=== PATIENT | female | born 1930 | race Caucasian/White ===

== ENCOUNTER 2019-10-06 16:11 | Inpatient (IN) | payer OTHER ==
[~2019-10-06] VITALS: Ht 142.2 cm; Wt 48.3 kg
[~2019-10-06 16:11] MED LIST: ACET-1079 PO; DOCU-96 PO; LEVO25TA6 PO; LORA-655 PO; METO-158 PO; NIF10C PO; POLY33504 PO; TRAM50TA2 PO
[2019-10-06 17:11] LABS: Basophils # (auto) 0 10 ^3/uL (0-0.2); Basophils % (auto) 0.1 % (0.0-2.0); Eosinophils # (auto) 0 10 ^3/uL (0-0.8); Eosinophils % (auto) 0.4 % (0.0-7.0); Hemoglobin 13.3 g/dL (12.2-16.2); Lymphocytes # (auto) 1.3 10 ^3/uL (0.4-5.4); Lymphocytes % (auto) 24.5 % (10.0-50.0); Mean Corpuscular Hemoglobin 31.4 pg (28.0-32.0); Mean Corpuscular Hgb Conc. 34.2 g/dL (32.0-36.0); Mean Corpuscular Volume 91.9 fL (80.0-100.0); Monocytes # (auto) 0.6 10 ^3/uL (0-1.3); Monocytes % (auto) 10.9 % (0.0-12.0); Neutrophils # (auto) 3.5 10 ^3/uL (1.6-8.6); Neutrophils % (auto) 64.1 % (37.0-80.0); Nucleated Red Blood Cells % 0.1 %; Platelet Count (auto) 176 10^3/uL (140-450); Red Blood Cells 4.25 10^6/uL (4.0-5.20); Red Cell Distribution Width 14.4 % (11.8-14.3); White Blood Cell 5.5 10^3/uL (4.4-10.8)
[2019-10-06 17:27] LABS: Albumin 3.3 g/dL (3.4-5.0); BUN/Creatinine Ratio 15.7; Calcium 8.3 mg/dL (8.5-10.1); Potassium 3.7 mmol/L (3.5-5.1)
[2019-10-06 17:30] LABS: Bilirubin, Total 0.5 mg/dL (0.2-1.0); Total Protein 6.8 g/dL (6.4-8.2)
[2019-10-06] MEDS ORDERED: MORPHINE SULF INJ 2 MG/ML SYRINGE 1ML IV ONE (17:30)
[2019-10-06] MEDS ORDERED: cloNIDine HCL 0.1 MG TAB PO ONE (17:30)
[2019-10-06] MEDS ORDERED: ONDANSETRON HCL 4 MG/2 ML VIAL IV ONE (17:30)
[2019-10-06] MEDS ORDERED: FUR20T (17:39)
[2019-10-06] MEDS ORDERED: POTASSIUM (17:39)
[2019-10-06] MEDS ORDERED: APIX2.5T (17:39)
[2019-10-06] MEDS ORDERED: ALBUTEROL SULF 2.5 MG/0.5ML(0.5%) NEB SOLN NEB PRN (18:00)
[2019-10-06] MEDS ORDERED: ONDANSETRON HCL 4 MG/2 ML VIAL IV PRN (18:00)
[2019-10-06] MEDS ORDERED: MORPHINE SULF INJ 2 MG/ML SYRINGE 1ML IV PRN (18:00)
[2019-10-06] MEDS ORDERED: LACTULOSE 20Gm/30ML SOLN PO PRN (18:00)
[2019-10-06 18:36] VITALS: BP 228/99
[2019-10-06] MEDS: SODIUM CHLORIDE 0.9% 1,000 ML IV SCH (18:38)
[2019-10-06] MEDS: LORazepam 0.5 MG TAB PO PRN (18:43)
[2019-10-06] MEDS: MORPHINE SULF INJ 2 MG/ML SYRINGE 1ML IV PRN ×2 (19:26→23:34)
[2019-10-06] MEDS ORDERED: POTA10TA51 PO (19:59)
[2019-10-06 20:00] VITALS: BP 158/72
--- NOTE | 2019-10-06 20:00 | NUR ---
MS admit from NOREEN NGUYENDENTON Morrison admitted to MS. Patient oriented to Charity wang RN, unit, room, bed, and unit policies regarding patient care and visiting hours. Patient weighed by bedscale and encouraged to call if they need something. All questions and concerns addressed, patient verbalized understanding. PATIENT IS A/OX4, HARD OF HEARING, ABLE TO ANSWER ALL QUESTIONS. GILL IN PLACE DRAINING CLEAR YELLOW URINE TO GRAVITY. SKIN TEAR NOTED TO LEFT HAND, WILL TAKE WOUND PHOTO AND DO WOUND CARE. IV IN PLACE TO RIGHT AC INTACT AND PATENT.
[2019-10-06 20:06] VITALS: BP 158/72
[2019-10-06 20:37] LABS: INR 1.07 (0.9-1.15)
--- NOTE | 2019-10-06 21:00 | NUR ---
WOUND CARE WOUND PHOTO TAKEN, FORM FILLED OUT AND PLACED IN WOUND CARE BASKET. WOUND CARE DONE TO LEFT HAND, CLEANSED WITH WOUND CLEANSER, PATTED DRY WITH STERILE GAUZE. COVERED LEFT HAND WITH STERI STRIPS AND OPTIFOAM.
[2019-10-06] MEDS: METOPROLOL TARTRATE 50 MG TAB PO SCH (22:02)
--- NOTE | 2019-10-06 23:34 | NUR ---
PAIN PATIENT HAS 10/10 PAIN TO RIGHT HIP/LEG MORPHINE ADMINISTERED ORDERED BY MD- SEE EMAR FOR DETAILS. WILL REASSESS PAIN IN 30 MIN
[2019-10-07] VITALS (7 sets, daily range): BP systolic 122–197; BP diastolic 73–100
--- NOTE | 2019-10-07 00:04 | NUR ---
PAIN REASSESSMENT PATIENT SLEEPING COMFORTABLY NO SIGNS OF PAIN. WILL CONTINUE TO MONITOR CLOSELY
[2019-10-07 01:31] LABS: Urine Amorphous Crystal FEW /hpf (None Seen); Urine Bacteria FEW /hpf (None Seen); Urine Blood Negative /uL (Negative); Urine WBC 1 /hpf (0 - 5)
[2019-10-07] MEDS: MORPHINE SULF INJ 2 MG/ML SYRINGE 1ML IV PRN ×3 (04:14→20:55)
--- NOTE | 2019-10-07 04:14 | NUR ---
PAIN PATIENT STATES HER PAIN IS 10/10 TO RIGHT LEG/HIP PATIENT MEDICATED WITH MORPHINE ORDERED BY MD- SEE EMAR FOR DETAILS. WILL REASSESS IN 30 MINUTES
--- NOTE | 2019-10-07 04:44 | NUR ---
PAIN REASSESSMENT PATIENT SLEEPING COMFORTABLY. NO S/S OF PAIN AT THIS TIME. WILL CONTINUE TO MONITOR CLOSELY
--- NOTE | 2019-10-07 04:55 | NUR ---
ROUTINE EKG DONE PER MD ORDER FOR PRE OP PLACED IN HARD CHART FOR MD TO SIGN
--- NOTE | 2019-10-07 06:50 | NUR ---
CLOSING PATIENT SLEEPING. NPO STATUS MAINTAINED FOR POSSIBLE PROCEDURE TODAY. FALL PRECAUTIONS IN PLACE, CALL LIGHT WITHIN REACH. WILL ENDORSE CARE TO DAYSHIFT RN
--- NOTE | 2019-10-07 07:25 | NUR ---
OPENING SHIFT NOTE ASSUMED CARE OF PATIENT FROM OCCUPATIONAL HEALTH RN JOSE ALFREDO SANCHEZ. PATIENT HAS NO S/S OF DISTRESS/SOB OR PAIN. INSTRUCTED PATIENT ON POC, PATIENT VERBALIZED UNDERSTANDING. BED IS IN LOWEST POSITION WITH SIDE RAILS RAISED X2, BED WHEELS LOCKED, GILL IS HANGING BELOW BLADDER AND IS DRAINING YELLOW URINE, AND CALL LIGHT IS WITHIN REACH. WILL CONTINUE TO MONITOR.
--- NOTE | 2019-10-07 07:30 | NUR ---
GRANDDAUGHTER ABIGAIL IS AT BEDSIDE
--- NOTE | 2019-10-07 07:30 | NUR ---
pt assessed for prn hhn tx. pt is on 4lnc, spo2 97%, hr 87, rr 18. no s.s of respiratory distress. hhn tx not indicated at this time. will continue to monitor.
--- NOTE | 2019-10-07 08:00 | NUR ---
RECEIVED CALL FROM ANESTHESIOLOGIST. PER ANESTHESIOLOGIST PATIENT NEEDS CARDIAC CLEARANCE BEFORE 1200 SO PATIENT CAN HAVE PROCEDURE DONE. INFORMED HER CARDIAC CONSULT HAS ALREADY BEEN CALLED IN AND IF HER OR DOCTOR SIDNEY WANT TO CALL DOCTOR DAVIDSON FOR CONSULT TO BE DONE NOW. US WILL CALL IN CONSULT AGAIN.
--- NOTE | 2019-10-07 08:30 | NUR ---
PAGED MD DAVIDSON FOR CARDIO CONSULT
--- NOTE | 2019-10-07 08:35 | NUR ---
RECEIVED CALL FROM AIRPLANE MECHANICJOSE ALFREDO MAHER REGARDING CARDIO CONSULT. INFORMED HER MD DAVIDSON IS AWARE OF CONSULT AND HAS 24 HOURS TO SEE PATIENT. PER AIRPLANE MECHANIC PATIENT IS SCHEDULED FOR SURGERY BEFORE [address]. IN[address] HER [address] WHITFIELD HAS ALREADY BEEN PAGED. PER PROTOTYPE ENGINEER CAN BE PAGED AGAIN. WILL PAGE AGAIN.
--- NOTE | 2019-10-07 08:51 | NUR ---
PAGED DR. DAVIDSON PER TRANSFER SERVICE THEY ALREADY PAGED HIM AND HE IS AWARE. INFORMED THEM PACU WANTS HIM PAGE EVERY 15 MINUTES
[2019-10-07] MEDS: SODIUM CHLORIDE 0.9% 1,000 ML IV SCH (09:41)
[2019-10-07] MEDS: METOPROLOL TARTRATE 50 MG TAB PO SCH ×2 (10:09→22:22)
[2019-10-07] MEDS ORDERED: HYDROmorphone HCL 2 MG/ML VL ONE (10:30)
[2019-10-07] MEDS ORDERED: SODIUM CHLORIDE LOCK 10 ML ONE (10:30)
[2019-10-07] MEDS ORDERED: MIDAZOLAM HCL 1MG/1ML-2 ML VIAL ONE (10:30)
[2019-10-07] MEDS ORDERED: ONDANSETRON HCL 4 MG/2 ML VIAL ONE (10:30)
[2019-10-07] MEDS ORDERED: fentaNYL CITRATE 5 ML ONE (10:30)
[2019-10-07] MEDS ORDERED: PROPOFOL 10 MG/ML 20 ML IV ONE (10:30)
[2019-10-07] MEDS ORDERED: ROCURONIUM 10MG/ML 10ML VIAL IV ONE (10:30)
[2019-10-07] MEDS ORDERED: fentaNYL CITRATE 100 MCG/2 ML VL ONE (10:30)
--- NOTE | 2019-10-07 11:15 | NUR ---
MEASUREMENT PSYCHOLOGIST AT BEDSIDE
--- NOTE | 2019-10-07 11:22 | NUR ---
WOUND CARE NOTE: Wound care in to see patient per wound care request regarding "skin tear left hand" that are noted present on admission. Bedside nurse took photograph of patient's wound wound admission for reference. Patient is 89 years old female with admitting diagnosis of R hip fracture. Patient with history of A Fib, Arthritis, High Lipids, htn. Patient is resting in bed in Rm. 292B. Patient is awake,alert and oriented. She's premedicated for pain by her bedside nurse prior skin assessment. Patient need assistance in turning and repositioning. Her current Alan score is 17. Patient is s/p mechanical fall at home. She has multi ecchymosis to extremities. Her L dorsal hand noted with 0.5x4cm open full thickness skin tear. Wound is red with ecchymotic jasmine wound, no drainage/odor noted. Bedside nurse cleansed patient's L hand skin tear and covered with Opti foam gentle dressing per MD order. Patient tolerated well, no other wound noted. Repositioned patient for comfort facing her Left side, redistributed pressure points with pillows. JOSE ALFREDO Martinez at bedside. RECOMMENDATION: Nursing to continue with BID/PRN cleaning and application of Barrier cream to sacral, buttocks as preventative, Q3days/PRN dressing change to L dorsal hand wound per MD order, Dietary consult, frequent turning and repositioning schedule as condition permits, redistribute pressure points with pillows,continue monitoring by wound care while patient is hospitalized. Addendum: 10/07/19 at 1328 by Alicja Carrillo RN Amended: Links added.
--- NOTE | 2019-10-07 11:30 | NUR ---
RECEIVED CALL FROM DR. DAVIDSON. PER HE WILL SEE THE PATIENT IN 15 MINUTES FOR CARDIO CLEARANCE. MD RAI AT BEDSIDE, INFORMED MD, HE IS AWARE.
--- NOTE | 2019-10-07 11:40 | NUR ---
SPOKE WITH DR. LITTLE AND INFORMED HIM PATIENT HAD ELIQUIS 10/06/[address] M[address] AND DR. DAVIDSON IS COMING TO SEE THE PATIENT. PER MD HE WILL DO SURGERY TODAY
--- NOTE | 2019-10-07 12:00 | NUR ---
MD DAVIDSON AT BEDSIDE AND CLEARED PATIENT FOR SURGERY
[2019-10-07] MEDS ORDERED: BUPIVACAINE W/ EPINEPH 0.25% INJ 50ML MDV ONE (12:23)
--- NOTE | 2019-10-07 12:23 | NUR ---
PATIENT TAKEN TO PRE-OP UNIT GAVE HAND OFF REPORT TO JOSE ALFREDO GARCIA. INFORMED HER OF PATIENT'S BLOOD PRESSURE. GRAND DAUGHTER ABIGAIL AT BEDSIDE. PATIENT HAS NO S/S OF DISTRESS/SOB AT THIS TIME.
[2019-10-07] MEDS ORDERED: ceFAZolin 1GM/50ML 50 ML IV ONE (12:36)
[2019-10-07] MEDS ORDERED: LACTATED RINGER'S 1,000 ML IV SCH (14:02)
[2019-10-07] MEDS: ceFAZolin 1GM/50ML 50 ML IV SCH ×2 (14:15→19:49)
[2019-10-07] MEDS ORDERED: MORPHINE SULF INJ 2 MG/ML SYRINGE 1ML IV PRN (14:45)
[2019-10-07] MEDS ORDERED: ONDANSETRON HCL 4 MG/2 ML VIAL IV PRN (14:45)
[2019-10-07] MEDS ORDERED: NALOXONE HCL 0.4 MG/ML VIAL ONE (15:00)
--- NOTE | 2019-10-07 15:59 | NUR ---
RECEIVED REPORT FROM ELECTRONIC SCIENCE TEACHERJOSE ALFREDO HERNANDEZ. PER RN PATIENT WILL NEED A SITTER. INFORMED PLEAT PATTERNMAKER.
[2019-10-07] MEDS ORDERED: DOCUSATE SOD 100 MG CAP PO PRN (17:00)
--- NOTE | 2019-10-07 19:00 | NUR ---
PT ASSESSED, BS CLEAR, NO SOB NOTED.
--- NOTE | 2019-10-07 19:17 | NUR ---
CLOSING SHIFT NOTE ENDORSED CARE TO FARMWORKER BULBS RN MARISOL. PATIENT HAS NO S/S OF DISTRESS/SOB OR PAIN AT THIS TIME.
--- NOTE | 2019-10-07 19:49 | NUR ---
OPEN NOTE Assumed care of pt, upon entering room pt has sitter at bedside. pt on 3L nc no distress noted or expressed. pt eyes closed, breathing is even and unlabored. pt has talamantes in place, secured, below the waist. pt has scd's in place. this nurse will update pt on poc at later time. bed locked, low and 2x rails up. call light in reach. this nurse will round q1hr and prn. encouraged sitter to call as needed.
[2019-10-08] MEDS: LORazepam 0.5 MG TAB PO PRN (00:10)
[2019-10-08] MEDS: SODIUM CHLORIDE 0.9% 1,000 ML IV SCH ×2 (00:13→12:46)
[2019-10-08] MEDS: ceFAZolin 1GM/50ML 50 ML IV SCH (01:59)
[2019-10-08] MEDS: MORPHINE SULF INJ 2 MG/ML SYRINGE 1ML IV PRN ×4 (02:00→22:01)
[2019-10-08 05:00] VITALS: BP 139/97
[2019-10-08 06:08] LABS: Basophils # (auto) 0 10 ^3/uL (0-0.2); Basophils % (auto) 0.1 % (0.0-2.0); Eosinophils # (auto) 0 10 ^3/uL (0-0.8); Hematocrit 27.9 % (36.0-46.0); Hemoglobin 9.9 g/dL (12.2-16.2); Lymphocytes # (auto) 0.6 10 ^3/uL (0.4-5.4); Lymphocytes % (auto) 9.4 % (10.0-50.0); Mean Corpuscular Hemoglobin 32.5 pg (28.0-32.0); Mean Corpuscular Hgb Conc. 35.5 g/dL (32.0-36.0); Mean Corpuscular Volume 91.7 fL (80.0-100.0); Monocytes # (auto) 0.7 10 ^3/uL (0-1.3); Monocytes % (auto) 11.4 % (0.0-12.0); Neutrophils # (auto) 4.8 10 ^3/uL (1.6-8.6); Neutrophils % (auto) 79.1 % (37.0-80.0); Platelet Count (auto) 140 10^3/uL (140-450); Red Blood Cells 3.05 10^6/uL (4.0-5.20); Red Cell Distribution Width 14.5 % (11.8-14.3); White Blood Cell 6.1 10^3/uL (4.4-10.8)
[2019-10-08] MEDS: LEVOTHYROXINE SODIUM 25 MCG TAB PO SCH (06:14)
[2019-10-08 06:29] LABS: Albumin 2.3 g/dL (3.4-5.0); BUN/Creatinine Ratio 14.1; Bilirubin, Total 0.4 mg/dL (0.2-1.0); Calcium 7.4 mg/dL (8.5-10.1); Magnesium 1.7 mg/dL (1.6-2.6); Total Protein 5.3 g/dL (6.4-8.2)
--- NOTE | 2019-10-08 07:30 | NUR ---
OPENING SHIFT NOTE ASSUMED CARE OF PATIENT FROM SUPPLEMENTAL NURSE RN MARISOL. PATIENT IS AWAKE AND ALERT X3 (PERSON, PLACE, SITUATION). REORIENTED PATIENT TO TIME. PATIENT HAS NO S/S OF SOB. PATIENT STATES 10/10 PAIN. WILL MEDICATE ORDERED. INSTRUCTED PATIENT ON POC, PATIENT VERBALIZED UNDERSTANDING. BED IS IN LOWEST POSITION WITH SIDE RAILS RAISED X2, BED WHEELS LOCKED, SITTER AT BEDSIDE, GILL IS HANGING BELOW BLADDER AND IS DRAINING YELLOW URINE, AND CALL LIGHT IS WITHIN REACH. WILL CONTINUE TO MONITOR.
[2019-10-08 08:20] VITALS: BP 150/83
[2019-10-08 09:00] VITALS: BP 150/83
[2019-10-08] MEDS: FUROSEMIDE 20 MG TAB PO SCH (09:18)
[2019-10-08] MEDS: METOPROLOL TARTRATE 50 MG TAB PO SCH ×2 (09:18→22:00)
[2019-10-08] MEDS: POTASSIUM CHL 10 Meq TABLET PO SCH (09:20)
[2019-10-08] MEDS ORDERED: ENOXAPARIN SOD 30 MG/0.3 ML SYRINGE SC SCH (10:00)
[2019-10-08 13:00] VITALS: BP 144/75
--- NOTE | 2019-10-08 14:00 | NUR ---
SPOKE WITH DR. RAI. INFORMED HIM OF PATIENT ALT AND AST AND PATIENT'S BLOOD PRESSURE, MD IS AWARE AND ORDERED PHYSICAL THERAPY.
--- NOTE | 2019-10-08 14:40 | NUR ---
Attempted PT eval but pt refused. Pt was educated on importance of functional mobility training s/p L hip surgery. Pt is alert and oriented x3, but when I entered the room the pt was yelling "I can't get up." I attempted to assist the patient to sit EOB, but she reported it was too painful and would not allow me to help her. I told the patient I will try again later. I was able to perform a subjective assessment with the patient. She states she lives in a single story home with her granddaughter. During the day, her granddaughter is not home so she goes and stays at her daughter's house. The pt states she has 24/7 assistance. She previously used a FWW for functional mobility. She has a shower chair and wheelchair to use at home as needed.
--- NOTE | 2019-10-08 15:27 | NUR ---
2ND attempt made for PT eval. Pt is lethargic and only keeps her eyes open for a few seconds at a time. Pt responded, "I am resting." Pt states she will participate tomorrow AM. Will attempt again tomorrow.
[2019-10-08 17:05] VITALS: BP 141/72
--- NOTE | 2019-10-08 19:15 | NUR ---
Opening note Pts granddaughter is at bedside. pt repositioned to the left side. pt moaned while being repositioned. Granddaughter at bedside did not want pt to have morphine at this time. granddaughter wants to feed pt first. will continue to monitor.
--- NOTE | 2019-10-08 19:26 | NUR ---
CLOSING SHIFT NOTE ENDORSED CARE TO RECREATIONAL COUNSELOR JOSE ALFREDO PADILLA. GRAND DAUGHTER ABIGAIL AT BEDSIDE. REPOSITIONED PATIENT TO LEFT SIDE. PER GRAND DAUGHTER SHE DOES NOT WANT PATIENT TO HAVE MORPHINE AT THIS TIME. PATIENT HAS NO S/S OF SOB OR PAIN AT THIS TIME. PATIENT MOANED AND GUARDED SURGICAL SITE WHEN REPOSITIONING.
[2019-10-08] MEDS: POLYETHYLENE GLYCOL 17 GM PWDR PO PRN (19:52)
[2019-10-08] MEDS ORDERED: [UNRECOGNIZED DRUG - OTHER] PO SCH (20:00)
--- NOTE | 2019-10-08 20:25 | NUR ---
Endorsed care to Ailyn VELIZ. Pt transported to 217B in hospital bed.
--- NOTE | 2019-10-08 20:30 | NUR ---
Patient arrives to floor from West Wing to Central / Opening Shift Note Assumed care of patient, awake and alert. Visitor at bedside. Fall, aspiration, and safety precautions in place. No S/S of distress/SOB or pain. Call light within reach and able to use. Sitter at bedside for safety. Instructed on POC and to call for assist PRN, patient verbalized understanding and in agreement. Will continue to monitor for changes Q1hr and PRN.
[2019-10-08 22:00] VITALS: BP 129/68
[2019-10-08] MEDS: APIXABAN 2.5 MG TAB PO SCH (22:00)
--- NOTE | 2019-10-08 22:00 | NUR ---
Pain Assessment Patient c/o acute pain rated 6/10 using adult pain scale to right hip s/p hip operation. Pain relieving methods discussed with patient, patient verbalized understanding and in agreement. Patient states she wants pain medication (see emar for administration). Will continue to monitor.
--- NOTE | 2019-10-08 22:30 | NUR ---
Pain Reassessment Patient denies pain at this time. Patient is resting in bed. Will continue to monitor.
--- NOTE | 2019-10-08 23:01 | NUR ---
Respiratory note: ASSESSED PT FOR PRN MED NEB AT THIS TIME, NO RESP DISTRESS NOTED, NO TX INDICATED, PULSE OX 92% ON 2LNC, HR 87, RR 20, BILATERAL BS DECREASED. SITTER AT BEDSIDE
--- NOTE | 2019-10-09 00:15 | NUR ---
TELE BOX CHANGE RECEIVED CALL FROM [employer], REQUESTING FOR BOX CHANGE TO BE DONE. PATIENT TAKEN OFF TELE AT THIS TIME TO RETRIEVE PROPER BOX FOR CORRESPONDING UNTIL.
--- NOTE | 2019-10-09 00:30 | NUR ---
ON TELE PATIENT NOW ON TELE #[phone]. WILL CONTINUE TO MONITOR.
--- NOTE | 2019-10-09 01:05 | NUR ---
Pain Assessment Patient c/o acute pain rated 8/10 using adult pain scale to right hip s/p surgery. Pain relieving methods discussed with patient, patient verbalized understanding and in agreement. Patient requests pain medication (see emar for administration). Will continue to monitor.
[2019-10-09] MEDS: MORPHINE SULF INJ 2 MG/ML SYRINGE 1ML IV PRN ×3 (01:07→06:33)
--- NOTE | 2019-10-09 01:37 | NUR ---
Pain Reassessment Patient's pain 0/10 at this time. Patient resting comfortably in bed. Will continue to monitor.
[2019-10-09] MEDS: SODIUM CHLORIDE 0.9% 1,000 ML IV SCH ×2 (02:19→17:22)
--- NOTE | 2019-10-09 04:30 | NUR ---
Pain Assessment Patient c/o acute pain rated 6/10 using adult pain scale to right hip s/p surgery. Pain relieving methods discussed with patient, patient verbalized understanding and in agreement. Patient requests pain medication (see emar for administration). Will continue to monitor.
[2019-10-09 05:00] VITALS: BP 141/70
--- NOTE | 2019-10-09 05:03 | NUR ---
Pain Reassessment Patient's pain 0/10 at this time. Patient resting in bed. Will continue to monitor.
[2019-10-09 06:10] LABS: Basophils # (auto) 0 10 ^3/uL (0-0.2); Eosinophils # (auto) 0 10 ^3/uL (0-0.8); Hematocrit 27.3 % (36.0-46.0); Hemoglobin 9.5 g/dL (12.2-16.2); Lymphocytes # (auto) 0.8 10 ^3/uL (0.4-5.4); Lymphocytes % (auto) 9.4 % (10.0-50.0); Mean Corpuscular Hemoglobin 32.1 pg (28.0-32.0); Mean Corpuscular Volume 91.7 fL (80.0-100.0); Monocytes # (auto) 0.9 10 ^3/uL (0-1.3); Monocytes % (auto) 11.1 % (0.0-12.0); Neutrophils # (auto) 6.4 10 ^3/uL (1.6-8.6); Neutrophils % (auto) 79.5 % (37.0-80.0); Platelet Count (auto) 177 10^3/uL (140-450); Red Blood Cells 2.97 10^6/uL (4.0-5.20); Red Cell Distribution Width 14.8 % (11.8-14.3)
[2019-10-09 06:26] LABS: BUN/Creatinine Ratio 18.1; Calcium 8.2 mg/dL (8.5-10.1)
--- NOTE | 2019-10-09 06:30 | NUR ---
Pain Assessment Patient c/o acute pain rated 10/10 using adult pain scale to right hip s/p hip surgery. Pain relieving methods discussed with patient, patient verbalized understanding and in agreement. Patient in agreement with pain medication (see emar for administration). Will continue to monitor.
[2019-10-09] MEDS: LEVOTHYROXINE SODIUM 25 MCG TAB PO SCH (06:32)
--- NOTE | 2019-10-09 07:30 | NUR ---
Opening Shift Note Assumed care of patient. Patient is sleepy but arousable. No S/S of distress/SOB or pain. Instructed on POC and to call for assist PRN, will continue to monitor for changes Q1hr and PRN.
[2019-10-09 09:00] VITALS: BP 163/81
[2019-10-09] MEDS: APIXABAN 2.5 MG TAB PO SCH ×2 (10:00→22:29)
[2019-10-09] MEDS: METOPROLOL TARTRATE 50 MG TAB PO SCH ×2 (10:06→22:29)
[2019-10-09] MEDS: FUROSEMIDE 20 MG TAB PO SCH (10:06)
[2019-10-09] MEDS: POTASSIUM CHL 10 Meq TABLET PO SCH (10:07)
--- NOTE | 2019-10-09 10:30 | NUR ---
Brenda PO held at this time pending approval from orthopedic surgeon to continue.
--- NOTE | 2019-10-09 10:30 | NUR ---
Patient more awake, alert. Patient's granddaughter, Jeanie, at bedside. OOB to chair by PT.
[2019-10-09 13:00] VITALS: BP 151/84
--- NOTE | 2019-10-09 13:30 | NUR ---
Dr. Burrows in to see patient as primary MD. He spoke with patient's granddaughter, Jeanie. Dr. Burrows informed that patient is very groggy with the morphine that is ordered for pain. New orders received. Will continue to monitor.
[2019-10-09 17:00] VITALS: BP 183/103
--- NOTE | 2019-10-09 17:00 | NUR ---
Verified with patient's granddaughter, Jeanie, that the patient is not allergic to Castaner. Pharmacy informed.
[2019-10-09] MEDS: HYDROcodone-ACET 5/325MG TAB PO PRN (17:13)
[2019-10-09 18:00] VITALS: BP 158/100
--- NOTE | 2019-10-09 20:30 | NUR ---
Respiratory note: PT ASSESSED FOR PRN MED NEB TX. HR 79, RR 18, SPO2 97% ON 2L NC. NO SIGNS OF ANY RESPIRATORY DISTRESS NOTED. ADVISED PT TO CALL IF TX IS NEEDED.
[2019-10-09 22:00] VITALS: BP 141/89
[2019-10-09] MEDS: BISACODYL 10 MG RECT SUPP PR PRN (22:29)
--- NOTE | 2019-10-09 22:30 | NUR ---
repositioned pt and pt passed gas. will continue to monitor.
[2019-10-10 01:01] VITALS: BP 141/89
[2019-10-10] MEDS: HYDROcodone-ACET 5/325MG TAB PO PRN ×2 (01:29→09:24)
--- NOTE | 2019-10-10 01:29 | NUR ---
PT IN PAIN. PT PAIN 11/29. REPOSITIONED, NORCO GIVEN AND HEATING PACK. WILL CONTINUE TO MONITOR.
--- NOTE | 2019-10-10 02:30 | NUR ---
PAIN PT IN PAIN STILL. PT NOW SAYS PAIN IS 10/10. PT CRYING. MORPHINE GIVEN. NOTIFIED GRAND DAUGHTER ABIGAIL OF THE PAIN MEDICATION.
[2019-10-10] MEDS: MORPHINE SULF INJ 2 MG/ML SYRINGE 1ML IV PRN (02:31)
[2019-10-10] MEDS: LORazepam 0.5 MG TAB PO PRN (04:05)
[2019-10-10 05:20] VITALS: BP 165/96
--- NOTE | 2019-10-10 06:05 | NUR ---
PAGED AND LEFT A MESSAGE FOR DR. RAI. AWAITING CALL BACK.
[2019-10-10 06:06] LABS: Hematocrit 26.2 % (36.0-46.0); Hemoglobin 9.4 g/dL (12.2-16.2)
[2019-10-10] MEDS: LEVOTHYROXINE SODIUM 25 MCG TAB PO SCH (06:20)
--- NOTE | 2019-10-10 07:25 | NUR ---
Opening Shift Note Assumed care of patient,patient is asleep but arousable. No S/S of distress/SOB or pain. Bed locked in lowest position with side rails up x2 and call light in reach, sitter at bedside for safety. Will continue to monitor for changes Q1hr and PRN.
[2019-10-10 09:01] VITALS: BP 152/87
[2019-10-10] MEDS: SODIUM CHLORIDE 0.9% 1,000 ML IV SCH ×2 (09:33→21:58)
[2019-10-10] MEDS: APIXABAN 2.5 MG TAB PO SCH ×2 (09:33→21:44)
[2019-10-10] MEDS: POTASSIUM CHL 10 Meq TABLET PO SCH (09:34)
[2019-10-10] MEDS: METOPROLOL TARTRATE 50 MG TAB PO SCH ×2 (09:34→21:44)
[2019-10-10] MEDS: FUROSEMIDE 20 MG TAB PO SCH (09:34)
--- NOTE | 2019-10-10 09:37 | NUR ---
Morning med pass Attempting to administer morning medication and pain medication, patient continues to spit out pill into her hand. Crushed pills with applesauce to administer, patient was able to eat the applesauce with max assistance.
--- NOTE | 2019-10-10 10:54 | NUR ---
DR RAI AT BEDSIDE
[2019-10-10] MEDS ORDERED: LACTULOSE 20Gm/30ML SOLN PO PRN ×2 (11:00→11:15)
[2019-10-10] MEDS ORDERED: traMADol HCL 50 MG TAB PO PRN ×2 (11:00)
[2019-10-10 14:01] VITALS: BP 145/82
--- NOTE | 2019-10-10 14:13 | NUR ---
Prior to getting patient out of bed to chair, pt recd PROM exercises for bilat LE's. Pt worked on ankle pumps, heel slides, hip abd/add x 15 reps for each exercise. Pt is a max A for transfers and pt cannot follow verbal commands at this time most likely secondary to pain Addendum: 10/10/19 at 1416 by Lyla Khan PT Amended: Links added.
--- NOTE | 2019-10-10 15:41 | NUR ---
D/C planning Per consult for home health physical therapy, 3 in 1 commode and front wheel walker. Faxed clinical information to [facility] home [facility]. Per Amber with [facility]:) patient has been accepted and service to start within 24-48hrs upon d/c day. Faxed clinical information to [facility]. Irena with [facility]:) advised me they will deliver medical equipment to patient home and they will contact patient to provide her with a time of delivery. Faxed clinical information to [facility]. Placed call to ELI Tidwell advising her order was fax to [facility] and [facility].
[2019-10-10 16:24] VITALS: BP 145/84
--- NOTE | 2019-10-10 16:33 | NUR ---
assessment Patient is a 89 year old female who is very tired. Per patients granddaughter Jeanie prior to admission patient lived home with her and family and was independent. Patient has a fww and a wheelchair for home use. Patients PCP is Dr Spicer. Patient has good family support. Per Jeanie patient tripped and fell at home and fractured her hip. Per Jeanie she prefers for patient to return home with her and family on discharge. Patient will need a bedside commode and home health for physical therapy. Jeanie informed me patient has an advanced directive and she is POA. Jeanie informed me patient has no other needs and family will take care of her on discharge. Jeanie verbalized understanding and agreed to discharge plan home. Addendum: 10/10/19 at 1638 by Manasa WONG Amended: Links added.
[2019-10-10] MEDS ORDERED: NALOXONE HCL 0.4 MG/ML VIAL SUBCUT ONE (18:15)
--- NOTE | 2019-10-10 18:42 | NUR ---
NARCAN ADMINISTERED TO RIGHT POSTERIOR UPPER ARM PER MD REQUEST.
[2019-10-10] MEDS: BISACODYL 10 MG RECT SUPP PR PRN (21:44)
--- NOTE | 2019-10-10 21:44 | NUR ---
PATIENT HAD NO BM SINCE 10/05/19. ADMINISTERED DULCOLAX SUPP PRESCRIBED. PATIENT HAD SMEAR BM BROWN LIQUID. PATIENT TOLERATED WELL.
[2019-10-10 22:00] VITALS: BP 163/95
--- NOTE | 2019-10-11 01:45 | NUR ---
PATIENT C/O PAIN MOANING WITH FACIAL GRIMACES AND UNABLE TO SLEEP. FAMILY AT BEDSIDE. WELL SITTER. ADMINISTERED TRAMADOL 50MG PO PRESCRIBED IN APPLESAUCE. PATIENT TOLERATED WELL. WILL CONTINUE TO MONITOR PATIENT.
[2019-10-11 05:00] VITALS: BP 161/99
[2019-10-11 05:25] LABS: Basophils # (auto) 0 10 ^3/uL (0-0.2); Basophils % (auto) 0.1 % (0.0-2.0); Eosinophils # (auto) 0 10 ^3/uL (0-0.8); Eosinophils % (auto) 0.2 % (0.0-7.0); Hematocrit 29.6 % (36.0-46.0); Hemoglobin 10.2 g/dL (12.2-16.2); Lymphocytes % (auto) 12.8 % (10.0-50.0); Mean Corpuscular Hemoglobin 31.2 pg (28.0-32.0); Mean Corpuscular Hgb Conc. 34.5 g/dL (32.0-36.0); Mean Corpuscular Volume 90.4 fL (80.0-100.0); Monocytes # (auto) 0.7 10 ^3/uL (0-1.3); Monocytes % (auto) 9.1 % (0.0-12.0); Neutrophils % (auto) 77.8 % (37.0-80.0); Platelet Count (auto) 272 10^3/uL (140-450); Red Blood Cells 3.27 10^6/uL (4.0-5.20); Red Cell Distribution Width 13.9 % (11.8-14.3); White Blood Cell 7.8 10^3/uL (4.4-10.8)
[2019-10-11 05:44] LABS: Calcium 7.9 mg/dL (8.5-10.1); Potassium 4.2 mmol/L (3.5-5.1)
--- NOTE | 2019-10-11 05:58 | NUR ---
PATIENT HAD NO BM. PAGED DR CHEN FOR ORDERS AWAITING CALLBACK.
[2019-10-11] MEDS: LEVOTHYROXINE SODIUM 25 MCG TAB PO SCH (06:18)
[2019-10-11] MEDS: POLYETHYLENE GLYCOL 17 GM PWDR PO PRN (06:18)
--- NOTE | 2019-10-11 06:32 | NUR ---
PATIENT HAD NO BM LAST NIGHT AFTER DULCOLAX SUPPOSITORY AND ONCALL DR CHEN HAS NOT CALLED BACK. ADMNISTERED MIRALAX PO PRESCRIBED. PATIENT TOLERATED WELL WILL CONTINUE TO MONITOR PATIENT. SITTER AT BEDSIDE.
--- NOTE | 2019-10-11 07:30 | NUR ---
Opening Shift Note Assumed care of patient, patient is awake and alert to self. No S/S of distress/SOB or pain. Bed locked in lowest position with side rails up x2 and call light in reach, sitter at bedside for safety. Will continue to monitor for changes Q1hr and PRN.
[2019-10-11 08:00] VITALS: BP 142/88
[2019-10-11] MEDS ORDERED: SODIUM CHLORIDE 0.9% 1,000 ML IV SCH (09:30)
[2019-10-11] MEDS: POTASSIUM CHL 10 Meq TABLET PO SCH (10:00)
[2019-10-11] MEDS: APIXABAN 2.5 MG TAB PO SCH (10:28)
[2019-10-11 10:32] VITALS: BP 142/88
[2019-10-11] MEDS: METOPROLOL TARTRATE 50 MG TAB PO SCH (10:40)
--- NOTE | 2019-10-11 11:15 | NUR ---
DISCHARGE WOUND PHOTO TAKEN OF LEFT HAND SKIN TEAR. RE-DRESSED WITH OPTIFOAM.
--- NOTE | 2019-10-11 11:50 | NUR ---
Discharge home Discharge instructions given as ordered. Encourage to follow up with PMD and ortho surgeon as instructed. All questions and concerns addressed. Patient verbalized understanding. Medication reconciliation form completed and copy given to patient. IV removed with catheter intact, pressure dressing applied, talamantes catheter removed. Telemetry unit returned to ICU. Patient taken to vehicle via wheelchair with all personal belongings, accompanied by staff and family member. No distress noted at time of departure.
== END 2019-10-11 11:50 | disposition home health service (06) | DRG 481 ==
LOC: EDBD 16:11 → ER 16:11 → OVERFLOW 16:12 → WEST WING 19:42 → CENTRAL 10-08 20:30 → TELE-CENTR 10-09 08:01
PROVIDERS: ADMIT Internal Medicine; ATTEND Internal Medicine
PROC: 0QU Lower Bones, Supplement (ICD-10-PCS; 2019-10-07)
PROC: 0QS634Z Reposition Right Upper Femur with Internal Fixation Device, Percutaneous Approach (ICD-10-PCS; principal; 2019-10-07 12:32)
DX: S72.141A Displaced intertrochanteric fracture of right femur, initial encounter for closed fracture (principal); E87.1 Hypo-osmolality and hyponatremia; I48.20 Chronic atrial fibrillation, unspecified; I16.0 Hypertensive urgency; I10 Essential (primary) hypertension; R73.9 Hyperglycemia, unspecified; E03.9 Hypothyroidism, unspecified; K59.00 Constipation, unspecified; F41.9 Anxiety disorder, unspecified; E78.5 Hyperlipidemia, unspecified; R41.0 Disorientation, unspecified; W01.0XXA Fall on same level from slipping, tripping and stumbling without subsequent striking against object, initial encounter; I25.10 Atherosclerotic heart disease of native coronary artery without angina pectoris; Z88.1 Allergy status to other antibiotic agents; Z88.5 Allergy status to narcotic agent; Z83.3 Family history of diabetes mellitus; Y93.89 Activity, other specified; Y92.89 Other specified places as the place of occurrence of the external cause; Y99.8 Other external cause status
CPT/HCPCS: 36415; 51702; 71045; 73502; 76000; 80048; 80053; 81001; 83735; 85014; 85018; 85025; 85610; 86850; 86900; 86901; 93005; 93306; 96361; 96374; 96375; 97110; 97163; 97530; C1713; G0378; J0690; J2250; J2405; J2704